=== PATIENT | female | born 1940 | race Caucasian/White ===

== ENCOUNTER 2017-01-21 05:36 | Inpatient (IN) ==
--- NOTE | 2017-01-21 05:56 | Emergency Department Note ---
Disposition Clinical Impression: Laceration Fall Qualifiers: Encounter type: initial encounter Qualified Code(s): W19.XXXA - Unspecified fall, initial encounter Syncope Qualifiers: Syncope type: unspecified Qualified Code(s): R55 - Syncope and collapse Disposition: Admitted As Inpatient Condition: Good General Adult HPI - General Chief complaint: ED Fall Stated complaint: fall Time Seen by Provider: 01/21/17 05:39 Source: patient, family, EMS Limitations: no limitations Nursing Notes Reviewed: Yes Vital Signs Reviewed: Yes - History of Present Illness HPI Narrative: 77-year-old female who all the remembers waking up on the bathroom floor. She does not know how she got to the bathroom but assumes that she was likely going to the restroom. She does not remember the event. She does remember that she could not get up and had to call a friend to help her. There is significant amount of blood in the bathroom. Unknown how long she had been in the bathroom. She is on dual antiplatelet therapy due to 2 drug-eluting stents that were placed proximally one year ago. She has a long-standing history of GI bleeds. She has had hospitalizations due to anemia from chronic GI please. She had a colonoscopy approximately one year ago which she reports was normal. She has had no change in her bowel movement since then but they are always dark. She denies having any complaints currently. Her friend in the room states that she has been complaining of fatigue over the last few days. She denies any chest pain or shortness of breath. She denies any significant pain in her head. Radiation: non-radiation Pain Severity: mild Pain Scale: 2 Consistency: constant Improves with: nothing Worsens with: nothing Associated symptoms: Reports: denies other symptoms Treatments Prior to Arrival: none - Related Data Home Medications Medication Instructions Recorded Confirmed Losartan [Cozaar] 25 mg PO DAILY 09/09/15 11/25/15 Acetaminophen [Tylenol] 500 mg PO Q6HR PRN 09/10/15 11/25/15 Calcium Carbonate [Calcium] 500 mg PO DAILY 09/10/15 11/25/15 Omeprazole [PriLOSEC] 20 mg PO DAILY 10/11/15 11/25/15 Albuterol Sulfate [Albuterol 2 puff IH Q4H PRN 11/25/15 11/25/15 Inhaler] Denosumab [Prolia (For Outpatient 60 mg SQ [id number] 11/25/15 11/25/15 Infusion)] Docusate [Colace] 100 mg PO BID PRN 11/25/15 11/25/15 Oxygen 2 - 3 l NS AD 11/25/15 11/25/15 amLODIPine [Norvasc] 5 mg PO DAILY 11/25/15 11/25/15 Previous Rx's Medication Instructions Recorded Aspirin 81 mg PO DAILY 30 Days tab.chew 09/15/15 Atorvastatin [Lipitor] 80 mg PO HS 30 Days tablet 09/15/15 Carvedilol [Coreg] 25 mg PO BID #60 tablet 09/15/15 Nitroglycerin [Nitrostat] 0.4 mg SL Q5-10MIN PRN #30 tab.subl 09/15/15 Ticagrelor [Brilinta] 90 mg PO BID tablet 09/15/15 Ipratropium/Albuterol Neb [Duoneb] 3 ml IH TID 30 Days inhsol 11/04/15 Benzonatate [Tessalon] 200 mg PO TID PRN #30 capsule 01/16/16 GuaiFENesin ER [Mucinex] 600 mg PO BID #20 tbbp.12hr 01/16/16 cephALEXin [Keflex] 500 mg PO QID #40 capsule 01/16/16 Allergies Allergy/AdvReac Type Severity Reaction Status Date / Time lorazepam [From Ativan] Allergy See Verified 11/25/15 16:41 Comments Benzodiazepines AdvReac Confusion Verified 11/02/15 10:34 haloperidol [From Haldol] AdvReac Agitated Verified 11/02/15 10:34 steroids AdvReac Agitated Uncoded 09/11/15 06:37 All systems ED: reviewed and negative except as stated. Constitutional: Denies: fever Cardiovascular: Denies: chest pain Respiratory: Denies: cough Gastrointestinal: Denies: abdominal pain Musculoskeletal: Denies: back pain Integumentary: Denies: rash Neurological: Denies: headache Past Medical History - Past Medical History Medical history: Reports: arthritis, cancer, coronary artery disease, GERD, hyperlipidemia, hypertension, malignancy, myocardial infarction, osteoporosis Surgical history: Reports: appendectomy, cholecystectomy, hysterectomy Psychiatric history: Reports: no psych history - Social History Smoking Status: Former smoker Smokeless Tobacco Status: No Alcohol use: Reports: none Drug use: Reports: none Physical Exam - General Limitations: no limitations General appearance: alert, in no apparent distress - Head Head exam: other (2 cm laceration to the posterior scalp. Bleeding is controlled) - Eye Eye exam: Present: normal appearance, PERRL, EOMI - ENT ENT exam: normal exam - Neck Neck exam: Present: normal inspection - Chest Chest inspection: Present: normal inspection - Respiratory Respiratory exam: Present: normal lung sounds bilaterally. Absent: respiratory distress - Cardiovascular Cardiovascular exam: Present: regular rate, normal rhythm, other (Systolic ejection murmur) - Abdominal Exam Abdominal exam: Present: soft, Non-Tender - Extremities Exam Extremities exam: Present: normal inspection - Back Exam Back exam: Present: normal inspection - Neurological Exam Neurological exam: Present: alert, oriented X3, CN II-XII intact. Absent: motor sensory deficit - Psychiatric Psychiatric exam: Present: normal affect, normal mood - Skin Skin exam: Present: warm, dry Course Course Narrative: hgb is normal. vitals are stable. ekg/troponin do not demonstrate acute disease. Will admit for syncope. She is currently asymptomatic. Vital Signs Temperature 97.5 F L 01/21/17 05:38 Pulse Rate 93 01/21/17 05:38 Respiratory Rate 18 01/21/17 05:38 Blood Pressure 132/77 01/21/17 05:38 O2 Sat by Pulse Oximetry 96 01/21/17 05:38 Temperature 97.5 F L 01/21/17 05:38 Pulse Rate 91 01/21/17 07:03 Respiratory Rate 18 01/21/17 07:03 Blood Pressure 105/59 01/21/17 07:03 O2 Sat by Pulse Oximetry 94 01/21/17 07:03 Oxygen Delivery Oxygen Delivery Room Air Procedures - Laceration Laceration 1 Site: scalp Side (If applicable): left Size (cm): 2 Description: linear Depth: simple, single layer Local Anesthetic: lidocaine 2%, with epi Pre-repair: wound explored, irrigated extensively, deep structures intact Skin layer closed with: other (chromic gut) Size: 4-0 Technique: running Medical Decision Making - Medical Records Medical records reviewed: Yes I reviewed the patient's medical records. - Lab Data Lab results reviewed: Yes I reviewed the patient's lab results. Result diagrams: 01/21/17 05:55 01/21/17 06:19 Lab Results 01/21/17 01/21/17 01/21/17 Range/Units 05:55 05:55 05:55 WBC 6.5 (4.3-11.1) K/mcL RBC 4.44 (3.82-4.97) M/mcL Hgb 13.8 (11.5-15.4) g/dL Hct 42.3 (35.3-44.9) % MCV 95.3 (83.0-100.0) fL MCH 31.1 (28.0-33.3) pg MCHC 32.6 (31.6-35.5) g/dL RDW 13.3 (11.5-14.5) % Plt Count 197 (140-400) K/mcL MPV 9.5 (9.4-12.4) fL Immature Gran % 0.5 (0-4) % Seg Neutrophils % 79.4 % Lymphocytes % 7.8 % Monocytes % 11.7 % Eosinophils % 0.3 % Basophils % 0.3 % Neutrophils # 5.2 (1.6-8.9) K/mcL Lymphocytes # 0.5 L (0.6-4.6) K/mcL Monocytes # 0.8 (0.0-1.3) K/mcL Eosinophils # 0.0 (0.0-0.6) K/mcL Basophils # 0.0 (0.0-0.2) K/mcL PT 12.8 H (9.4-12.1) Seconds INR 1.2 APTT 30.0 (26.0-36.0) Seconds Sodium (136-145) mEq/L Potassium (3.5-4.5) mEq/L Chloride (98-109) mEq/L Carbon Dioxide (19-29) mEq/L BUN (7-20) mg/dL Creatinine (0.57-1.11) mg/dL Est GFR ( Amer) (> 60) Est GFR (Non-Af Amer) (> 60) BUN/Creatinine Ratio (6-26) Glucose (70-99) mg/dL Calculated Osmolality (280-300) Calcium (8.6-10.8) mg/dL Creatine Kinase (29-168) Units/L Troponin I (0-0.03) ng/mL Specimen Rejected Blood Type B NEGATIVE Antibody Screen NEGATIVE 01/21/17 01/21/17 01/21/17 Range/Units 05:55 05:55 06:19 WBC (4.3-11.1) K/mcL RBC (3.82-4.97) M/mcL Hgb (11.5-15.4) g/dL Hct (35.3-44.9) % MCV (83.0-100.0) fL MCH (28.0-33.3) pg MCHC (31.6-35.5) g/dL RDW (11.5-14.5) % Plt Count (140-400) K/mcL MPV (9.4-12.4) fL Immature Gran % (0-4) % Seg Neutrophils % % Lymphocytes % % Monocytes % % Eosinophils % % Basophils % % Neutrophils # (1.6-8.9) K/mcL Lymphocytes # (0.6-4.6) K/mcL Monocytes # (0.0-1.3) K/mcL Eosinophils # (0.0-0.6) K/mcL Basophils # (0.0-0.2) K/mcL PT (9.4-12.1) Seconds INR APTT (26.0-36.0) Seconds Sodium 139 (136-145) mEq/L Potassium 4.0 (3.5-4.5) mEq/L Chloride 103 (98-109) mEq/L Carbon Dioxide 24 (19-29) mEq/L BUN 28 H (7-20) mg/dL Creatinine 1.09 (0.57-1.11) mg/dL Est GFR ( Amer) 59 L (> 60) Est GFR (Non-Af Amer) 48 L (> 60) BUN/Creatinine Ratio 26 (6-26) Glucose 123 H (70-99) mg/dL Calculated Osmolality 295 (280-300) Calcium 9.0 (8.6-10.8) mg/dL Creatine Kinase 113 (29-168) Units/L Troponin I 0.02 (0-0.03) ng/mL Specimen Rejected Hemolyzed Blood Type Antibody Screen - Radiology Data Radiology results reviewed: Yes I reviewed the patient's radiology results. - EKG Data EKG #1 EKG attestation: Yes I reviewed and interpreted this EKG. EKG shows normal: sinus rhythm Rate: normal Rhythm: NSR Boelus/QRS: normal ST segment depression in: v2, v3, v4, v5, v6 When compared to previous EKG there are: no significant changes Interpretation: no acute changes Attestation Statement - Attestation Attestation: I, Marc Bell, examined this patient and my medical decision-making was reviewed with the INTERFACE ENGINEER/PA/Advanced Practice Nurse/Resident Physician. I agree with the documented findings, disposition and treatment plan as described except to the extent set forth below. 77-year-old female presents to the emergency department after a syncopal episode. Patient is unable to give a history regarding the circumstances surrounding her fall to the ground. Patient first remembers being on the bathroom floor. She does not remember chest pain or shortness of breath or palpitations. Family member states the patient has had multiple falls over the past few weeks. No recent changes in medications. Patient had laceration to the left occiput which required repair by the resident. Patient has history of loss of balance over the past few weeks per family member. Patient had a echocardiogram performed by Dr. Dunne within the past few weeks which was apparently without abnormality per the patient. Patient agreed to admission to the hospital for further care and evaluation.
[2017-01-21 06:04] LABS: Basophils % 0.3 %; Eosinophils % 0.3 %; Hematocrit 42.3 % (35.3-44.9); Hemoglobin 13.8 g/dL (11.5-15.4); Immature Granulocytes % 0.5 % (0-4); Lymphocytes # 0.5 K/mcL (0.6-4.6); Lymphocytes % 7.8 %; Mean Corpuscular HGB Conc 32.6 g/dL (31.6-35.5); Mean Corpuscular Hemoglobin 31.1 pg (28.0-33.3); Mean Corpuscular Volume 95.3 fL (83.0-100.0); Mean Platelet Volume 9.5 fL (9.4-12.4); Monocytes # 0.8 K/mcL (0.0-1.3); Monocytes % 11.7 %; Neutrophils # 5.2 K/mcL (1.6-8.9); Platelet Count 197 K/mcL (140-400); Red Blood Count 4.44 M/mcL (3.82-4.97); Red Cell Distribution Width 13.3 % (11.5-14.5); Segmented Neutrophils % 79.4 %
[2017-01-21 06:09] LABS: INR 1.2; Prothrombin Time 12.8 Seconds (9.4-12.1)
[2017-01-21 07:09] LABS: Immature Platelets 4.1 % (1.1-6.1)
--- NOTE | 2017-01-21 08:07 | Internal Med History&Physical ---
Date of Encounter: 01/22/17 Time of Encounter: 08:05 Assessment and Plan (1) Syncope Current visit: Yes Status: Acute 77/female Multiple comorbid issues. Admitted with syncope/fall Unknown amount of time when she was unconscious. Lacerated wound on her left scalp. CT head: No acute intracranial abnormality. CT cervical spine: No fracture. Chest x-ray: No acute abnormality detected. Labs: Mild dehydration. Ultrasound carotid: 08/2015: Right proximal ICA and: 60-79%. Echocardiogram: 12/2016: Ejection fraction: 50-55%. No PFO detected. Plan: Admit is a patient: Need to 2 hourly neuro checks. Ultrasound carotid MRI brain UA: Ordered PT/OT evaluation resume home medication Of note: I examined this patient in the emergency room #2. Patient's niece was at bedside. Plan of care discussed with the patient/patient's family member. All questions answered. Qualifiers: Syncope type: unspecified Qualified Code(s): R55 - Syncope and collapse (2) Fall Current visit: Yes Status: Acute See above Qualifiers: Encounter type: initial encounter Qualified Code(s): W19.XXXA - Unspecified fall, initial encounter (3) CAD (coronary artery disease) Current visit: No Status: Chronic No chest pain. Resume home medication. Qualifiers: Coronary Disease-Associated Artery/Lesion type: [place] artery [place] vs. transplanted heart: [place] heart Associated angina: without angina Qualified Code(s): I25.10 - Atherosclerotic heart disease of [place] coronary artery without angina pectoris (4) HTN (hypertension) Current visit: Yes Status: Chronic Well controlled at this point. Resume home medication. Qualifiers: Hypertension type: essential hypertension Qualified Code(s): I10 - Essential (primary) hypertension (5) DVT prophylaxis Current visit: No Status: Acute SCD Rectal decision making: This patient has a moderate to severe risk of worsening is tired of being on appropriate medication related underlying comorbid conditions. Internal Medicine - H&P: HPI Chief complaint: syncope Admitted From: Emergency Dept Plans for Post Hospital Care: Home History of present illness: PCP: Dr Pérez Cardiology : Dr Dunne PMH:coronary artery disease, GERD, hyperlipidemia, hypertension, myocardial infarction, osteoporosis HPI: Patient had a syncopal episode this morning when she was in the bathroom. Patient does not know how long she was unconscious. She was calling for her significant other for help bruits 87-year-old man and he is deaf. Finally she managed to get her to the living room and that was the time her significant other noticed that patient has a pool of blood on her head.patient called her needs for further help. Patient's niece came and she called squad and patient came to this hospital for further evaluation. Patient does have abnormal gait/ unsteady gait for the past 2-3 days. Patient denies chest pain, shortness of breath, nausea, vomiting, abdominal pain, dizziness and diarrhea. Workup in the emergency room: Basic labs are drawn. X-ray chest unremarkable. CT head/CT cervical spine: No acute abnormality except left scalp laceration. Reason for admission: Syncope/TIA to rule out CVA. Family history: Noncontributory Past Med Surg Social Fam HX - Past Medical History Medical history: arthritis, cancer, coronary artery disease, GERD, hyperlipidemia, hypertension, malignancy, myocardial infarction, osteoporosis Psychiatric history: no psych history - Past Surgical History Surgical History: appendectomy, cholecystectomy, hysterectomy - Social History Smoking Status: Former smoker Smokeless Tobacco Status: No Alcohol use: none Drug use: none - Family History Mother Family Member Ethnicity: Non- Living Status: Hx Family Cardiac Disorders: Yes Hx Family Respiratory Disorders: No Hx Family Cancer: Yes Hx Family Endocrine Disorder: Yes Hx Family Neuromuscular Disorders: No Hx Family Neurologic Disorders: Yes Hx Family HEENT Disorders: No Hx Family Autoimmune Disorders: No Father Family Member Ethnicity: Non- Living Status: Hx Family Cardiac Disorders: Yes (brother,self) Hx Family Respiratory Disorders: Yes (self) Hx Family Cancer: Yes (self, brother) Hx Family GI Disorders: No Hx Family Endocrine Disorder: Yes (mother) Hx Family Neuromuscular Disorders: No Hx Family Neurologic Disorders: Yes (father ,mother) Hx Family HEENT Disorders: No Hx Family Autoimmune Disorders: No Sister Hx Family Cardiac Disorders: Yes (Coronary artery disease) Hx Family Cancer: Yes (Ureteral cancer) Internal Medicine - H&P: Meds Acetaminophen [Tylenol] 500 mg PO Q6HR PRN 09/10/15 [History] Calcium Carbonate [Calcium] 500 mg PO DAILY 09/10/15 [History] Aspirin 81 mg PO DAILY 30 Days tab.chew 09/15/15 [Rx] Atorvastatin [Lipitor] 80 mg PO HS 30 Days tablet 09/15/15 [Rx] Carvedilol [Coreg] 25 mg PO BID #60 tablet 09/15/15 [Rx] Nitroglycerin [Nitrostat] 0.4 mg SL Q5-10MIN PRN #30 tab.subl 09/15/15 [Rx] Omeprazole [PriLOSEC] 20 mg PO DAILY 10/11/15 [History] Albuterol Sulfate [Albuterol Inhaler] 2 puff IH Q4H PRN 11/25/15 [History] Denosumab [Prolia (For Outpatient Infusion)] 60 mg SQ [id number] 11/25/15 [History ] Docusate [Colace] 100 mg PO BID PRN 11/25/15 [History] Oxygen 2 - 3 l NS AD 11/25/15 [History] Losartan Potassium [Cozaar] 50 mg PO DAILY 01/21/17 [History] 3 Allergy/AdvReac Type Severity Reaction Status Date / Time Benzodiazepines AdvReac Confusion Verified 11/02/15 10:34 haloperidol [From Haldol] AdvReac Agitated Verified 11/02/15 10:34 lorazepam [From Ativan] AdvReac agitation Verified 01/21/17 07:15 steroids AdvReac Agitated Uncoded 09/11/15 06:37 All Systems PM: A 10-system review of systems was performed and is negative for pertinent findings except as documented above in the HPI. - Constitutional Constitutional: falls, lethargy, malaise, no chills, no fever(s), no night sweats - EENT Eyes: no change in vision, no discharge, no pain, no photophobia Ears: no ear discharge, no ear pain, no tinnitus Nose, mouth and throat: no dysphagia, no nasal discharge, no neck pain, no sore throat - Cardiovascular Cardiovascular ROS IM: no chest pain, no diaphoresis, no dyspnea, no lightheadedness, no palpitations, no syncope - Respiratory Respiratory: no cough, no dyspnea, no wheezing, no excessive phlegm production - Gastrointestinal Gastrointestinal: no abdominal pain, no diarrhea, no hematemesis, no hematochezia, no melena, no nausea, no vomiting - Genitourinary Genitourinary: no change in urinary stream, no dysuria, no flank pain, no hematuria - Musculoskeletal Musculoskeletal ROS IM: no numbness, no tingling - Integumentary Integumentary IM: no rash, no unusual bruising - Neurological Neurological ROS: abnormal gait, abnormal speech, confusion, no convulsions, no focal weakness, no numbness, no tingling, no tremor(s) - Hematologic/Lymphatic Hematologic/Lymphatic: no easy bruising - Constitutional Vitals: Temp Pulse Resp BP Pulse Ox 97.5 F L 91 18 105/59 94 01/21/17 05:38 01/21/17 07:03 01/21/17 07:03 01/21/17 07:03 01/21/17 07:03 General appearance: Present: A&O X 3, pleasant, no acute distress, answers questions appropriately - Head Head exam: Present: atraumatic, normocephalic - Eye Eye exam: Present: PERRL, conjuntiva pink, sclera anicteric Pupils: Present: PERRL - Neck Neck exam general surgery: Present: supple, trachea midline. Absent: lymphadenopathy - Respiratory Respiratory exam: Present: CTAB. Absent: accessory muscle use, rales, rhonchi, wheezes - Cardiovascular Cardiovascular exam: Present: RRR, +S1, +S2. Absent: diastolic murmur, gallop, rubs, systolic murmur - GI/Abdominal GI/Abdominal exam: Present: normal bowel sounds, soft, no peritoneal signs. Absent: distended, tenderness - Extremities Exam Extremities exam: Present: warm, radial pulses palpable and symmetrical. Absent : calf tenderness, cyanotic, pedal edema - Neurological Exam Neurological exam: Present: CN II-XII intact, oriented X3, no focal deficits. Absent: pronater drift, facial droop, speech deficit - Skin Skin exam: Present: dry, intact Internal Med - H&P Results - Labs CBC & Chem 7: 01/22/17 05:41 01/22/17 05:41 Labs: Discussed with the emergency room physician.
[2017-01-21] MEDS ORDERED: Naloxone 0.4 MG/ML INJ IVP PRN (08:09)
[2017-01-21] MEDS ORDERED: Nitroglycerin 0.4 MG TAB.SUBL SL PRN (08:11)
[2017-01-21] MEDS ORDERED: Denosumab 60 MG/ML SYRINGE SQ SCH (08:15)
[2017-01-21] MEDS ORDERED: NON-FORMULARY MEDICATION 1 EACH EACH (Oxygen [Oxygen] 0 L) NS SCH (08:15)
[2017-01-21] MEDS: Aspirin 81 MG TAB.CHEW PO SCH (11:22)
[2017-01-21 19:19] LABS: Bilirubin,Urine Small (Negative); Blood,Urine Moderate (Negative); Clarity,Urine Cloudy (Clear); Color,Urine Dark Yellow (Yellow); Glucose,Urine (UA) Normal (Normal); Ketones,Urine Trace mg/dL (Negative); Leukocyte Esterase,Urine Moderate (Negative); Nitrite,Urine Negative (Negative); Protein,Urine 30 mg/dL (Neg-Trace); Specific Gravity,Urine 1.028 (1.010-1.025); Urobilinogen,Urine Normal (Normal)
[2017-01-21 19:23] LABS: Hyaline Casts,Urine Moderate per lpf (None-Few); Squamous Epithelial Cell,Urine Moderate per lpf (None-Few); WBC,Urine 50-100 per hpf (0-3)
[2017-01-21 19:49] LABS: Bacteria,Urine Many per hpf (None-Few); RBC,Urine 0-3 per hpf (0-3)
[2017-01-22 06:59] LABS: INR 1.2; Prothrombin Time 12.5 Seconds (9.4-12.1)
[2017-01-22 07:02] LABS: Basophils % 0.4 %; Eosinophils # 0.2 K/mcL (0.0-0.6); Eosinophils % 3.2 %; Hematocrit 38.5 % (35.3-44.9); Hemoglobin 12.2 g/dL (11.5-15.4); Immature Granulocytes % 0.4 % (0-4); Lymphocytes % 18.6 %; Mean Corpuscular HGB Conc 31.7 g/dL (31.6-35.5); Mean Corpuscular Hemoglobin 30.6 pg (28.0-33.3); Mean Corpuscular Volume 96.5 fL (83.0-100.0); Mean Platelet Volume 9.8 fL (9.4-12.4); Monocytes # 0.9 K/mcL (0.0-1.3); Monocytes % 18.4 %; Platelet Count 207 K/mcL (140-400); Red Blood Count 3.99 M/mcL (3.82-4.97); Red Cell Distribution Width 13.6 % (11.5-14.5)
[2017-01-22 07:26] LABS: Alanine Aminotransferase 16 Units/L (0-55); Albumin 2.9 g/dL (3.5-5.0); Albumin/Globulin Ratio 0.7 (1.1-2.2); Alkaline Phosphatase 53 Units/L (38-126); Aspartate Amino Transferase 23 Units/L (5-34); BUN/Creatinine Ratio 30 (6-26); Bilirubin,Total 0.4 mg/dL (0.2-1.2); Blood Urea Nitrogen 32 mg/dL (7-20); Calcium 8.8 mg/dL (8.6-10.8); Carbon Dioxide 24 mEq/L (19-29); Chloride 107 mEq/L (98-109); Chol/HDL Ratio 4.4 (0-4.9); Cholesterol 135 mg/dL (< 200); Globulin 4.1 g/dL (2.4-3.5); Glucose 102 mg/dL (70-99); HDL Cholesterol 31 mg/dL (40-59); LDL Cholesterol,Calculated 79 mg/dL (0-99); Osmolality,Calculated 299 (280-300); Phosphorous 2.5 mg/dL (2.3-4.7); Potassium 3.7 mEq/L (3.5-4.5); Sodium 141 mEq/L (136-145); Triglycerides 126 mg/dL (< 150); eGFR For African Americans > 60 (> 60); eGFR For Non-African Americans 51 (> 60)
[2017-01-22 08:01] LABS: Platelet Estimate Normal (Normal)
[2017-01-22] MEDS: Aspirin 81 MG TAB.CHEW PO SCH (09:32)
[2017-01-22] MEDS: cefTRIAXone 1,000 MG in Water for inj. (sterile) 10 ML IVP SCH (11:03)
--- NOTE | 2017-01-22 19:11 | Internal Med Progress Note ---
Date of Encounter: 01/22/17 Time of Encounter: 11:00 - Assessment and plan (1) Syncope Current Visit: Yes Status: Acute Assessment and plan: Patient reports syncopal episode in the bathroom on the morning of admission. She states she is not even remember how she got to the bathroom, she just awakened in the floor. She does not know how long her loss of consciousness was. She states that she was calling for her , but he is 87 years old and is very hard of hearing did not hear her. She finally managed to get herself to the living room, at that time realized that she was bleeding from her head and called the squad. She had laceration that was sutured in the emergency department. Per admission note, patient did have unsteady gait for the past to 3 days prior to arrival. She denied any chest pain, shortness of breath, nausea, vomiting, abdominal pain, dizziness, headache, or vision changes. She denies fever or chills. Patient had syncopal episode of unknown etiology. All imaging has been negative to this point. 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 Recommend cardiology consult for the morning, possible Holter monitor after discharge. Cervical Spine CT 01/21/17 05:47 IMPRESSION: No acute abnormality of the cervical spine. D/ / Berhane Roca MD / Berhane Roca MD Interpreting Provider: Berhane Roca MD Head CT 01/21/17 05:47 IMPRESSION: No acute intracranial abnormality. Left parietal scalp laceration. D/ / Berhane Roca MD / Berhane oRca MD Interpreting Provider: Berhane Roca MD Brain MRI 01/21/17 08:15 IMPRESSION: 1. No acute abnormality. Specifically, no acute infarction. 2. Diffuse parenchymal volume loss and sequela of moderate chronic microvascular ischemic changes. D/ / Janes Pitts MD / Janes Pitts MD Interpreting Provider: Janes Ptits MD Qualifiers: Syncope type: unspecified Qualified Code(s): R55 - Syncope and collapse (2) Fall Current Visit: Yes Status: Acute Assessment and plan: Patient status post fall at home. Laceration to left parietal area. Patient reports loss of consciousness for unknown amount of time. Physical therapy and occupational therapy have evaluated the patient recommend outpatient therapy. Continue fall precautions and bed alarm. Up with assist only. Qualifiers: Encounter type: initial encounter Qualified Code(s): W19.XXXA - Unspecified fall, initial encounter (3) HTN (hypertension) Current Visit: Yes Status: Chronic Assessment and plan: Well controlled. Continue home medications. Continue to monitor vital signs per admission orders. Qualifiers: Hypertension type: essential hypertension Qualified Code(s): I10 - Essential (primary) hypertension (4) COPD (chronic obstructive pulmonary disease) Current Visit: Yes Status: Chronic Assessment and plan: No acute exacerbation at this time. Lungs are clear diminished throughout. She denies cough. She is not requiring supplemental oxygen above her baseline. Chest x-ray is negative. She has no leukocytosis, fever, tachycardia. She is not febrile. Continue home medications. Continue duo nebs. Titrate O2 as needed to maintain sats greater than 92%. Chest X-Ray 01/21/17 05:47 IMPRESSION: Stable chest. No acute disease. D/ / Berhane Roca MD / Berhane Roca MD Interpreting Provider: Berhane Roca MD Qualifiers: COPD type: unspecified COPD Qualified Code(s): J44.9 - Chronic obstructive pulmonary disease, unspecified (5) Laceration Current Visit: Yes Status: Acute Assessment and plan: Plan as above. Watch for signs of infection and bleeding. Watch for discharge. Sutures out in 7-10 days. (6) DVT prophylaxis Current Visit: No Status: Acute Assessment and plan: ROBIN hose ordered. (7) UTI (urinary tract infection) Current Visit: Yes Status: Acute Assessment and plan: Patient denies urinary symptoms. This is an incidental finding on routine labs in the emergency department. Urine was cloudy, acidic gravity 1.028, trace of proteins, moderate amount of blood, moderate leukocyte esterase with 50-100 microscopic white cells. Urine showed many bacteria, moderate casts. Culture is indicated and pending. She is being treated with Rocephin 1 g IV daily. Watch for culture and adjust antibiotics as necessary. Qualifiers: Urinary tract infection type: acute cystitis Hematuria presence: without hematuria Qualified Code(s): N30.00 - Acute cystitis without hematuria - Time Spent With Patient less than 15 minutes - Subjective Interval history: Patient was seen and assessed at 11 AM. She is alert, awake, oriented, pleasant. She denies chest pain. She denies fever or chills. She denies any urinary symptoms. She is not aware that she had a urinary tract infection. He denies abdominal pain or back pain, no nausea, vomiting, diaphoresis or diarrhea. She states that she wants to go home. 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 All testing has been negative, she is aware. - Constitutional Vitals: Temp Pulse Resp BP Pulse Ox 97.5 F L 94 17 111/66 93 01/22/17 18:59 01/22/17 18:59 01/22/17 18:59 01/22/17 18:59 01/22/17 18:59 General appearance: Present: cooperative, A&O X 3, pleasant, no acute distress, answers questions appropriately - Head Head exam: Present: atraumatic, normal inspection, normocephalic - Eye Eye exam: Present: normal appearance, PERRL, conjuntiva pink, sclera anicteric Pupils: Present: PERRL - Neck Neck exam general surgery: Present: supple, trachea midline. Absent: lymphadenopathy - Respiratory Respiratory exam: Present: CTAB. Absent: accessory muscle use, chest wall tenderness, rales, respiratory distress, rhonchi, wheezes - Cardiovascular Cardiovascular exam: Present: RRR, +S1, +S2. Absent: bradycardia, diastolic murmur, gallop, rubs, systolic murmur, tachycardia - GI/Abdominal GI/Abdominal exam: Present: normal bowel sounds, soft. Absent: distended, hepatomegaly, tenderness - Extremities Exam Extremities exam: Present: normal capillary refill, normal inspection, warm, radial pulses palpable and symmetrical. Absent: calf tenderness, cyanotic, pedal edema, tenderness - Neurological Exam Neurological exam: Present: alert, oriented X3, no focal deficits. Absent: facial droop, speech deficit - Skin Skin exam: Present: dry, intact, normal color, warm. Absent: rash Internal Medicine: Result - Labs CBC & Chem 7: 01/22/17 05:41 01/22/17 05:41 Labs: Short CBC 01/22/17 Range/Units 05:41 WBC 5.1 (4.3-11.1) K/mcL Hgb 12.2 D (11.5-15.4) g/dL Hct 38.5 (35.3-44.9) % Plt Count 207 (140-400) K/mcL Neutrophils # 3.0 (1.6-8.9) K/mcL BMP 01/22/17 05:41 Sodium 141 Potassium 3.7 Chloride 107 Carbon Dioxide 24 BUN 32 H Creatinine 1.05 Glucose 102 H Calcium 8.8 Cardiac Enzymes 01/21/17 Range/Units 20:00 Troponin I 0.01 (0-0.03) ng/mL Liver Function 01/22/17 Range/Units 05:41 Total Bilirubin 0.4 (0.2-1.2) mg/dL AST 23 (5-34) Units/L ALT 16 (0-55) Units/L Alkaline Phosphatase 53 (38-126) Units/L Albumin 2.9 L (3.5-5.0) g/dL Urine 01/21/17 Range/Units 10:57 Urine Color Dark Yellow (Yellow) Urine Clarity Cloudy A (Clear) Urine pH 6.0 (5.0-8.0) pH Units Ur Specific [place] 1.028 H (1.010-1.025) Urine Protein 30 H (Neg-Trace) mg/dL Urine Glucose (UA) Normal (Normal) mg/dL - ABG Interpretation ABG results: PT/INR, D-dimer PT 12.5 Seconds (9.4-12.1) H 01/22/17 05:41 Consult Discharge Plan - Plan Referrals: Marc Pérez MD [Primary Care Provider] - 01/25/17 10:00 am
[2017-01-23 07:20] VITALS: BP 124/79
[2017-01-23] MEDS: cefTRIAXone 1,000 MG in Water for inj. (sterile) 10 ML IVP SCH (08:54)
[2017-01-23] MEDS: Aspirin 81 MG TAB.CHEW PO SCH (08:55)
[2017-01-23 09:43] LABS: Bilirubin,Urine Negative (Negative); Blood,Urine Small (Negative); Clarity,Urine Cloudy (Clear); Color,Urine Yellow (Yellow); Glucose,Urine (UA) Normal (Normal); Ketones,Urine Negative (Negative); Leukocyte Esterase,Urine Moderate (Negative); Nitrite,Urine Negative (Negative); Protein,Urine Trace mg/dL (Neg-Trace); Specific Gravity,Urine 1.029 (1.010-1.025); Urobilinogen,Urine Normal (Normal)
[2017-01-23 09:44] LABS: Bacteria,Urine None Seen per hpf (None-Few); Hyaline Casts,Urine None Seen per lpf (None-Few); Squamous Epithelial Cell,Urine Many per lpf (None-Few); WBC,Urine 50-100 per hpf (0-3)
--- NOTE | 2017-01-23 10:39 | Discharge Summary ---
Date of Encounter: 01/23/17 Time of Encounter: 08:40 - Discharge Diagnosis (1) Syncope Priority: Primary Status: Acute Comments: Patient reports syncopal episode in the bathroom on the morning of admission. She states she is not even remember how she got to the bathroom, she just awakened in the floor. She does not know how long her loss of consciousness was. She states that she was calling for her , but he is 87 years old and is very hard of hearing did not hear her. She finally managed to get herself to the living room, at that time realized that she was bleeding from her head and called the squad. She had laceration that was sutured in the emergency department. Per admission note, patient did have unsteady gait for the past to 3 days prior to arrival. She denied any chest pain, shortness of breath, nausea, vomiting, abdominal pain, dizziness, headache, or vision changes. She denies fever or chills. Patient had syncopal episode of unknown etiology. All imaging has been negative to this point. 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 Pt has had tele monitoring for the duration of her visit and was without events , will order Holter for discharge. Cervical Spine CT 01/21/17 05:47 IMPRESSION: No acute abnormality of the cervical spine. D/ / Berhane Roca MD / Berhane Roca MD Interpreting Provider: Berhane Roca MD Head CT 01/21/17 05:47 IMPRESSION: No acute intracranial abnormality. Left parietal scalp laceration. D/ / Berhane Roca MD / Berhane Roca MD Interpreting Provider: Berhane Roca MD Brain MRI 01/21/17 08:15 IMPRESSION: 1. No acute abnormality. Specifically, no acute infarction. 2. Diffuse parenchymal volume loss and sequela of moderate chronic microvascular ischemic changes. D/ / Janes Pitts MD / Janes Pitts MD Interpreting Provider: Janes Pitts MD Qualifiers: Syncope type: unspecified Qualified Code(s): R55 - Syncope and collapse (2) Fall Priority: Secondary Status: Acute Comments: Patient status post fall at home. Laceration to left parietal area. Patient reports loss of consciousness for unknown amount of time. Physical therapy and occupational therapy have evaluated the patient recommend outpatient therapy. PT recommends outpatient PT, pt will follow up with PCP on 01/25 at 10:00. Can be ordered at that time. Cervical Spine CT 01/21/17 05:47 IMPRESSION: No acute abnormality of the cervical spine. D/ / Berhane Roca MD / Berhane Roca MD Interpreting Provider: Berhane Roca MD Head CT 01/21/17 05:47 IMPRESSION: No acute intracranial abnormality. Left parietal scalp laceration. D/ / Berhane Roca MD / Berhane Roca MD Interpreting Provider: Berhane Roca MD Brain MRI 01/21/17 08:15 IMPRESSION: 1. No acute abnormality. Specifically, no acute infarction. 2. Diffuse parenchymal volume loss and sequela of moderate chronic microvascular ischemic changes. D/ / Janes Pitts MD / Janes Pitts MD Interpreting Provider: Janes Pitts MD Qualifiers: Encounter type: initial encounter Qualified Code(s): W19.XXXA - Unspecified fall, initial encounter (3) HTN (hypertension) Priority: Secondary Status: Chronic Comments: Well controlled. Continue medications. Qualifiers: Hypertension type: essential hypertension Qualified Code(s): I10 - Essential (primary) hypertension (4) COPD (chronic obstructive pulmonary disease) Priority: Secondary Status: Chronic Comments: No acute exacerbation at this time. Lungs are clear diminished throughout. She denies cough. She is not requiring supplemental oxygen above her baseline. Chest x-ray is negative. She has no leukocytosis, fever, tachycardia. She is not febrile. Continue home medications after discharge. Chest X-Ray 01/21/17 05:47 IMPRESSION: Stable chest. No acute disease. D/ / Berhane Roca MD / Berhane Roca MD Interpreting Provider: Berhane Roca MD Qualifiers: COPD type: unspecified COPD Qualified Code(s): J44.9 - Chronic obstructive pulmonary disease, unspecified (5) Laceration Priority: Secondary Status: Acute Comments: Sutures out in 7-10 days. There is no bleeding or drainage from wound. (6) DVT prophylaxis Priority: Secondary Status: Acute Comments: ROBIN hose ordered. (7) UTI (urinary tract infection) Priority: Secondary Status: Acute Comments: Patient denies urinary symptoms. This is an incidental finding on routine labs in the emergency department. Urine was cloudy, acidic gravity 1.028, trace of proteins, moderate amount of blood, moderate leukocyte esterase with 50-100 microscopic white cells. Urine showed many bacteria, moderate casts. Culture grossly Unable to be interpreted. Urine has been recollected, will notify patient if change in antibiotics as needed. She is being treated with Rocephin 1 g IV daily, patient will be sent home with Bactrim DS. Watch for culture and adjust antibiotics as necessary. Qualifiers: Urinary tract infection type: acute cystitis Hematuria presence: without hematuria Qualified Code(s): N30.00 - Acute cystitis without hematuria - Discharge Medications Prescriptions: Sulfamethoxazole/Trimeth DS [Bactrim DS] 1 each PO BID #14 tablet Home Medications: Acetaminophen [Tylenol] 500 mg PO Q6HR PRN 09/10/15 [History] Calcium Carbonate [Calcium] 500 mg PO DAILY 09/10/15 [History] Aspirin 81 mg PO DAILY 30 Days tab.chew 09/15/15 [Rx] Atorvastatin [Lipitor] 80 mg PO HS 30 Days tablet 09/15/15 [Rx] Carvedilol [Coreg] 25 mg PO BID #60 tablet 09/15/15 [Rx] Nitroglycerin [Nitrostat] 0.4 mg SL Q5-10MIN PRN #30 tab.subl 09/15/15 [Rx] Omeprazole [PriLOSEC] 20 mg PO DAILY 10/11/15 [History] Albuterol Sulfate [Albuterol Inhaler] 2 puff IH Q4H PRN 11/25/15 [History] Denosumab [Prolia (For Outpatient Infusion)] 60 mg SQ [id number] 11/25/15 [History ] Docusate [Colace] 100 mg PO BID PRN 11/25/15 [History] Oxygen 2 - 3 l NS AD 11/25/15 [History] Losartan Potassium [Cozaar] 50 mg PO DAILY 01/21/17 [History] Sulfamethoxazole/Trimeth DS [Bactrim DS] 1 each PO BID #14 tablet 01/23/17 [Rx] Allergies/Adverse Reactions: 3 Allergy/AdvReac Type Severity Reaction Status Date / Time Benzodiazepines AdvReac Confusion Verified 11/02/15 10:34 haloperidol [From Haldol] AdvReac Agitated Verified 11/02/15 10:34 lorazepam [From Ativan] AdvReac agitation Verified 01/21/17 07:15 steroids AdvReac Agitated Uncoded 09/11/15 06:37 Procedures/tests Complete & Pending: Procedures Performed prior 72 hours Category Date Time Status MR head/brain wo con [MR] Routine MRI 01/21/17 08:15 Completed EV carotid duplex imaging BI Routine Y 01/21/17 08:14 Completed Date of admission: 01/21/17 08:09 Primary care physician: Marc Pérez MD Consults: 01/21/17 08:14 Consult to Occupational Therapy [CONS] Routine Comment: Evaluate, develop and implement POC Reason for Consult: TIA/CVA Consult to Physical Therapy [CONS] Routine Comment: Evaluate, develop and implement POC Reason for Consult: TIA/CVA 01/22/17 19:21 Consult to Cardiology [CONS] Routine Comment: Consulting Provider: [facility] [place] Reason for Consult: Syncopal episode, all routine testing and imaging negative. Pt denies chest pain at time of episode. Recommendations, please, for any other testing, Holter, etc? Call Completed: No Discharging clinician: Trixie Sullivan Anticipated date of discharge: 01/23/17 - Patient Status Disposition: Home, Self-Care Condition: Good Functional capacity at discharge: independent ambulation Overall status at discharge: patient is back to baseline - Discharge Instructions Follow Up With: Marc Pérez MD [Primary Care Provider] - 01/25/17 10:00 am Additional Instructions: Please follow-up with Dr. Jane on 01/28/2017 at 11 AM. Has been recommended that you have outpatient physical therapy for strengthening. Please discuss this with Dr. Pérez at your visit. His follow-up with cardiology as scheduled. Your Holter monitor has been ordered, results will go to cardiology. Please take your antibiotics as written, we will call you if there needs to be a change in her antibiotic. Increase your fluid intake daily. Resume your other normal medications. Return to your normal activities as tolerated. Return to the emergency department as needed for any other parts or concerns, or if your symptoms return or worsen. - Diet and Activity Activity: increase activity as tolerated Diet: advance to your usual diet Interval History: Please see assessment and plan per hospital course. Hospital course: Ms. Thakkar is a 77 year old female - Time Spent with Patient Total time spent providing and/or coordinating discharge services: Less than 30 minutes - Constitutional Vitals: Temp Pulse Resp BP Pulse Ox 97.9 F 84 18 124/79 94 01/23/17 07:18 01/23/17 07:18 01/23/17 07:18 01/23/17 07:18 01/23/17 07:18 General appearance: Present: A&O X 3, pleasant, no acute distress, answers questions appropriately - Head Head exam: Present: atraumatic, normal inspection, normocephalic - Eye Eye exam: Present: normal appearance, conjuntiva pink, sclera anicteric - Neck Neck exam general surgery: Present: supple, trachea midline. Absent: lymphadenopathy, tenderness - Respiratory Respiratory exam: Present: CTAB. Absent: accessory muscle use, rales, rhonchi, wheezes - Cardiovascular Cardiovascular exam: Present: RRR, +S1, +S2. Absent: diastolic murmur, gallop, rubs, systolic murmur - GI/Abdominal GI/Abdominal exam: Present: normal bowel sounds, soft. Absent: distended, hepatomegaly, tenderness - Extremities Exam Extremities exam: Present: normal capillary refill, warm, radial pulses palpable and symmetrical. Absent: calf tenderness, cyanotic, pedal edema, tenderness - Neurological Exam Neurological exam: Present: alert, oriented X3, no focal deficits, strengths equal and symetr throughout. Absent: altered, facial droop, speech deficit - Skin Skin exam: Present: dry, intact, normal color, warm. Absent: rash
--- NOTE | 2017-01-23 12:04 | Cardiology Consult Note ---
Date of Encounter: 01/23/17 Time of Encounter: 12:00 Assessment and Plan (1) Syncope Current Visit: Yes Status: Acute Possibly syncope as a result of UTI, however with h/o CAD and no chest pain prior to previous stents consider OP stress test and event monitor. patient will follow with Dr. Dunne in 2-4 weeks Qualifiers: Syncope type: unspecified Qualified Code(s): R55 - Syncope and collapse Discussion w patient/family: The assessment and plan as outlined above was discussed with the patient and/or family members who expressed understanding and agreement. All questions were answered. Thank you for involving us in the care of your patient. Please call with any questions. History of Present Illness Consult date: 01/23/17 Consult reason: fall Chief complaint: i fell and dont remember how History of present illness: Ms. Thakkar is a 77 year old female with h/o CAD s/p PCI a year ago to the RCA and LAD with a recent ECHO found to have a preserved EF at 60% and no major valvular abnormalities. She does not remember how or events related to her fall. she remembers going to the bathroom and waking up on the floor with a scalp wound bleeding. Denes any chest pain, worsening SOB or palpitations recently. 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 An OP stress test is reasonable since she did not have chest pain prior to her previous stents. Past Med Surg Social Fam HX - Past Medical History Medical history: arthritis, cancer, coronary artery disease, GERD, hyperlipidemia, hypertension, malignancy, myocardial infarction, osteoporosis Psychiatric history: no psych history - Past Surgical History Surgical History: appendectomy, cholecystectomy, hysterectomy - Social History Smoking Status: Former smoker Smokeless Tobacco Status: No Alcohol use: none Drug use: none - Family History Mother Family Member Ethnicity: Non- Living Status: Hx Family Cardiac Disorders: Yes Hx Family Respiratory Disorders: No Hx Family Cancer: Yes Hx Family Endocrine Disorder: Yes Hx Family Neuromuscular Disorders: No Hx Family Neurologic Disorders: Yes Hx Family HEENT Disorders: No Hx Family Autoimmune Disorders: No Father Family Member Ethnicity: Non- Living Status: Hx Family Cardiac Disorders: Yes (brother,self) Hx Family Respiratory Disorders: Yes (self) Hx Family Cancer: Yes (self, brother) Hx Family GI Disorders: No Hx Family Endocrine Disorder: Yes (mother) Hx Family Neuromuscular Disorders: No Hx Family Neurologic Disorders: Yes (father ,mother) Hx Family HEENT Disorders: No Hx Family Autoimmune Disorders: No Sister Hx Family Cardiac Disorders: Yes (Coronary artery disease) Hx Family Cancer: Yes (Ureteral cancer) Medications and Allergies Acetaminophen [Tylenol] 500 mg PO Q6HR PRN 09/10/15 [History] Calcium Carbonate [Calcium] 500 mg PO DAILY 09/10/15 [History] Aspirin 81 mg PO DAILY 30 Days tab.chew 09/15/15 [Rx] Atorvastatin [Lipitor] 80 mg PO HS 30 Days tablet 09/15/15 [Rx] Carvedilol [Coreg] 25 mg PO BID #60 tablet 09/15/15 [Rx] Nitroglycerin [Nitrostat] 0.4 mg SL Q5-10MIN PRN #30 tab.subl 09/15/15 [Rx] Omeprazole [PriLOSEC] 20 mg PO DAILY 10/11/15 [History] Albuterol Sulfate [Albuterol Inhaler] 2 puff IH Q4H PRN 11/25/15 [History] Denosumab [Prolia (For Outpatient Infusion)] 60 mg SQ [id number] 11/25/15 [History ] Docusate [Colace] 100 mg PO BID PRN 11/25/15 [History] Oxygen 2 - 3 l NS AD 11/25/15 [History] Losartan Potassium [Cozaar] 50 mg PO DAILY 01/21/17 [History] Sulfamethoxazole/Trimeth DS [Bactrim DS] 1 each PO BID #14 tablet 01/23/17 [Rx] 3 Allergy/AdvReac Type Severity Reaction Status Date / Time Benzodiazepines AdvReac Confusion Verified 11/02/15 10:34 haloperidol [From Haldol] AdvReac Agitated Verified 11/02/15 10:34 lorazepam [From Ativan] AdvReac agitation Verified 01/21/17 07:15 steroids AdvReac Agitated Uncoded 09/11/15 06:37 All Systems Review: A 10-system review of systems was performed and is negative for pertinent findings except as documented above in the HPI. Physical Examination General: Conversant, No Apparent Distress HEENT: Atraumatic, Normocephaly, Mucus Membranes Moist Neck: No JVD, Normal carotid pulses Cardiac: Reg Rate and Rhythm, Normal S1 and S2, No Murmur Lungs: Normal Breath Sounds (severe dimished air entry over the right lung), No Wheeze, Rales, Rhonchi Neuro: Alert and responsive, No focal deficits noted Abdomen: Soft, Non-Tender Skin: No rashes noted on visualized skin Musculoskeletal: No Chest Wall Tenderness Extremities: No Clubbing, No Cyanosis, No Edema, Normal Pulses Results 01/22/17 05:41 01/22/17 05:41 Consult Discharge Plan - Plan Instructions: Urinary Tract Infection in Women (DC), Syncope (DC), Fall Prevention (DC) Additional Instructions: Please follow-up with Dr. Jane on 01/28/2017 at 11 AM. Has been recommended that you have outpatient physical therapy for strengthening. Please discuss this with Dr. Pérez at your visit. His follow-up with cardiology as scheduled. Your Holter monitor has been ordered, results will go to cardiology. Please take your antibiotics as written, we will call you if there needs to be a change in her antibiotic. Increase your fluid intake daily. Resume your other normal medications. Return to your normal activities as tolerated. Return to the emergency department as needed for any other parts or concerns, or if your symptoms return or worsen. Follow-up appointments: If there is not an appointment listed below, please call your physician and schedule a follow-up appointment. If you have congestive heart failure and your symptoms return, make an appointment with your physician. Medication List: Carry an up to date list of medications you are taking at all time. We have given you an updated medication list including any new medications that you have been prescribed. Please provide that list to your primary provider Symptoms: If your condition changes or you experience any of the following symptoms, notify your physician immediately: Unusual or worsening pain, fever, persistent nausea and vomiting, bleeding, increase in swelling (especially in your legs), sudden weight gain, extreme dizziness, chest pain, increased drainage or redness from a wound or incision. Go to the emergency department if you experience a problem with breathing. Weights: If you have a history of swelling or shortness of breath, weigh yourself daily and notify your physician if you have a weight gain of two or more pounds in one day or 5 or more pounds in a week. If you experience any of the warning signs for stroke: Sudden numbness or weakness of the face, arm or leg; especially on one side of the body, sudden confusion, trouble speaking or understanding, sudden trouble seeing in one or both eyes, sudden trouble walking, dizziness, loss of balance or coordination, sudden sever headache with no cause; Call 911 or go to the emergency room. Stroke is a medical emergency. Some risk factors for stroke: Age, cigarette smoking, diabetes, excessive alcohol consumption, family history , high blood pressure, overweight, physical inactivity, prior stroke, heart attack, diagnosis of carotid artery stenosis or other artery disease. If you smoke, STOP: Smoking or tobacco use significantly increases your risk of heart and lung disease. Your chance of disease greatly increases if you continue to smoke. For more information, call the [place] tobacco quit line for smoking cessation 2-NOW ( ) Referrals: Marc Pérez MD [Primary Care Provider] - 01/25/17 10:00 am Prescriptions: Sulfamethoxazole/Trimeth DS [Bactrim DS] 1 each PO BID #14 tablet
--- NOTE | 2017-01-23 18:17 | Electrocardiograph Report ---
[place] [id number] Test Date: 2017-01-21 Pat Name: Leeanne Thakkar Department: 104 Room: 3B54 Gender: F Process Lead: MACKENZIE : 1940 Requested By: Myles Ward Order Number: [id number] Reading MD: Joni Angulo DO Measurements Intervals [place] Rate: 92 P: 14 GA: 116 QRS: 12 QRSD: 85 T: 163 QT: 369 QTc: 418 Interpretive Statements Sinus rhythm Left ventricular hypertrophy with ST-T changes Electronically Signed On 01-23-2017 18:16:31 EST by Joni Angulo DO
== END 2017-01-23 12:26 | disposition home or self-care (01) | DRG 690 ==
LOC: 3BNU 05:36 → EMEROO 05:36 → 3BNU 08:07
PROVIDERS: ADMIT Internal Medicine; ATTEND Registered Nurse

== ENCOUNTER 2019-09-21 05:01 | Inpatient (IN) ==
[2019-09-21] MEDS ORDERED: Azithromycin 500 MG in 0.9 % Sodium Chloride 250 ML IVPB ONE (06:14)
[2019-09-21] MEDS ORDERED: cefTRIAXone 1,000 MG in Water for inj. (sterile) 10 ML IVP ONE (06:14)
[2019-09-21 07:13] LABS: Basophils % 0.2 %; Eosinophils % 0.2 %; Hematocrit 30.3 % (35.3-44.9); Hemoglobin 9.3 g/dL (11.5-15.4); Immature Granulocytes % 0.5 % (0-4); Lymphocytes # 0.3 K/mcL (0.6-4.6); Lymphocytes % 4.6 %; Mean Corpuscular HGB Conc 30.7 g/dL (31.6-35.5); Mean Corpuscular Hemoglobin 31.7 pg (28.0-33.3); Mean Corpuscular Volume 103.4 fL (83.0-100.0); Mean Platelet Volume 9.2 fL (9.4-12.4); Monocytes # 0.5 K/mcL (0.0-1.3); Monocytes % 8.5 %; Neutrophils # 5.3 K/mcL (1.6-8.9); Platelet Count 153 K/mcL (140-400); Red Blood Count 2.93 M/mcL (3.82-4.97); Red Cell Distribution Width 13.3 % (11.5-14.5); White Blood Count 6.1 K/mcL (4.3-11.1)
[2019-09-21 07:17] LABS: INR 1.2; Prothrombin Time 13.5 Seconds (9.4-12.1)
[2019-09-21 07:20] LABS: Activated Partial Thrombo Time 36.4 Seconds (26.0-36.0)
[2019-09-21 07:28] LABS: Adenovirus Not Detected (Not Detect); Coronavirus 229E Not Detected (Not Detect); Coronavirus HKU1 Not Detected (Not Detect); Coronavirus NL63 Not Detected (Not Detect); Coronavirus OC43 Not Detected (Not Detect)
[2019-09-21 07:30] LABS: Bordetella Pertussis Not Detected (Not Detect); Chlamydophila pneumoniae Not Detected (Not Detect); Human Metapneumovirus Not Detected (Not Detect); Human Rhinovirus/Enterovirus Not Detected (Not Detect); Influenza A Subtype 2009 H1 Not Detected (Not Detect); Influenza B Not Detected (Not Detect); Mycoplasma pneumoniae Not Detected (Not Detect); Parainfluenza Virus 1 Not Detected (Not Detect); Parainfluenza Virus 2 Not Detected (Not Detect); Parainfluenza Virus 3 Not Detected (Not Detect); Parainfluenza Virus 4 Not Detected (Not Detect); Respiratory Syncytial Virus Not Detected (Not Detect)
[2019-09-21 07:31] LABS: Alanine Aminotransferase 22 Units/L (7-52); Albumin 3.5 g/dL (3.5-5.7); Albumin/Globulin Ratio 0.9 (1.1-2.2); Alkaline Phosphatase 68 Units/L (34-104); Aspartate Amino Transferase 31 Units/L (13-39); BUN/Creatinine Ratio 29 (6-26); Bilirubin,Total 0.4 mg/dL (0.3-1.0); Blood Urea Nitrogen 24 mg/dL (8-23); Calcium 9.4 mg/dL (8.6-10.3); Carbon Dioxide 32 mEq/L (23-29); Chloride 104 mEq/L (98-107); Globulin 3.9 g/dL (2.4-3.5); Glucose 95 mg/dL (70-105); Osmolality,Calculated 298 (280-300); Sodium 142 mEq/L (136-145); Total Protein 7.4 g/dL (6.4-8.9); eGFR For African Americans > 60 (> 60); eGFR For Non-African Americans > 60 (> 60)
[2019-09-21] MEDS ORDERED: Ipratropium/Albuterol Neb 3 ML IH PRN (09:14)
[2019-09-21] MEDS ORDERED: Naloxone 0.4 MG/ML INJ IVP PRN (09:16)
[2019-09-21] MEDS ORDERED: Ondansetron ODT 4 MG TAB.RAPDIS SL PRN (09:16)
[2019-09-21] MEDS ORDERED: Isovue-370 500 ML BOTTLE IVP ONE (09:18)
[2019-09-21] MEDS ORDERED: Furosemide 40 MG/4 ML VIAL IVP ONE (09:37)
[2019-09-21] MEDS ORDERED: Perflutren Lipid Microsphere 1.3 ML in 0.9 % Sodium Chloride 8.7 ML IVP PRN (09:38)
[2019-09-21] MEDS: Dexamethasone 4 MG/ML VIAL IVP SCH (10:46)
[2019-09-21 12:44] LABS: ABG Base Excess 9 mEq/L (-2 to 3); ABG HCO3 33 mEq/L (21-27); ABG Oxygen Saturation 87 % (95-98); ABG PCO2 39 mmHg (35-45); ABG PH 7.53 pH Units (7.32-7.45); ABG PO2 47 mmHg (85-104); ABG TCO2 34 mEq/L (20-26)
[2019-09-21] MEDS: *HR* Heparin 5,000 UNIT/ML VIAL SQ SCH ×2 (15:38→20:53)
[2019-09-21] MEDS: carvediloL 25 MG TABLET PO SCH (16:42)
[2019-09-21] MEDS: Mirtazapine 15 MG TABLET PO SCH (20:52)
[2019-09-22] MEDS: *HR* Heparin 5,000 UNIT/ML VIAL SQ SCH ×3 (04:47→22:28)
[2019-09-22] MEDS: cefTRIAXone 1,000 MG in Water for inj. (sterile) 10 ML IVP SCH (08:26)
[2019-09-22] MEDS: Aspirin 81 MG TAB.CHEW PO SCH (08:27)
[2019-09-22] MEDS: Dexamethasone 4 MG/ML VIAL IVP SCH (08:27)
[2019-09-22] MEDS: carvediloL 25 MG TABLET PO SCH ×2 (08:28→16:00)
[2019-09-22] MEDS ORDERED: Azithromycin 500 MG in 0.9 % Sodium Chloride 250 ML IVPB SCH (09:00)
[2019-09-22 09:04] LABS: Basophils % 0.1 %; Hemoglobin 10.2 g/dL (11.5-15.4); Immature Granulocytes % 0.3 % (0-4); Lymphocytes # 0.5 K/mcL (0.6-4.6); Lymphocytes % 5.4 %; Mean Corpuscular HGB Conc 30.9 g/dL (31.6-35.5); Mean Corpuscular Volume 100.3 fL (83.0-100.0); Mean Platelet Volume 9.4 fL (9.4-12.4); Monocytes # 0.7 K/mcL (0.0-1.3); Monocytes % 7.7 %; Neutrophils # 7.8 K/mcL (1.6-8.9); Platelet Count 196 K/mcL (140-400); Red Blood Count 3.29 M/mcL (3.82-4.97); Red Cell Distribution Width 13.2 % (11.5-14.5); Segmented Neutrophils % 86.5 %; White Blood Count 9.1 K/mcL (4.3-11.1)
[2019-09-22 09:26] LABS: BUN/Creatinine Ratio 35 (6-26); Blood Urea Nitrogen 32 mg/dL (8-23); Calcium 9.3 mg/dL (8.6-10.3); Carbon Dioxide 33 mEq/L (23-29); Chloride 100 mEq/L (98-107); Glucose 151 mg/dL (70-105); Osmolality,Calculated 302 (280-300); Sodium 141 mEq/L (136-145); eGFR For African Americans > 60 (> 60); eGFR For Non-African Americans 59 (> 60)
[2019-09-22] MEDS ORDERED: Furosemide 20 MG/2 ML VIAL IVP ONE (12:01)
[2019-09-22] MEDS: Ipratropium 1 PUFF INHALER IH SCH ×3 (16:08→23:36)
[2019-09-22] MEDS: Mirtazapine 15 MG TABLET PO SCH (20:03)
[2019-09-23] MEDS: Ipratropium 1 PUFF INHALER IH SCH ×6 (03:59→23:58)
[2019-09-23] MEDS: *HR* Heparin 5,000 UNIT/ML VIAL SQ SCH ×3 (05:00→20:44)
[2019-09-23 06:00] LABS: BUN/Creatinine Ratio 38 (6-26); Blood Urea Nitrogen 38 mg/dL (8-23); Calcium 9.5 mg/dL (8.6-10.3); Carbon Dioxide 37 mEq/L (23-29); Chloride 98 mEq/L (98-107); Glucose 125 mg/dL (70-105); Osmolality,Calculated 301 (280-300); Sodium 140 mEq/L (136-145); eGFR For African Americans > 60 (> 60); eGFR For Non-African Americans 53 (> 60)
[2019-09-23 06:27] LABS: Hematocrit 31.3 % (35.3-44.9); Hemoglobin 9.8 g/dL (11.5-15.4); Mean Corpuscular HGB Conc 31.3 g/dL (31.6-35.5); Mean Corpuscular Hemoglobin 31.8 pg (28.0-33.3); Mean Corpuscular Volume 101.6 fL (83.0-100.0); Mean Platelet Volume 9.7 fL (9.4-12.4); Platelet Count 207 K/mcL (140-400); Red Blood Count 3.08 M/mcL (3.82-4.97); Red Cell Distribution Width 13.2 % (11.5-14.5)
[2019-09-23 06:35] LABS: White Blood Count 14.7 K/mcL (4.3-11.1)
[2019-09-23] MEDS: cefTRIAXone 1,000 MG in Water for inj. (sterile) 10 ML IVP SCH (08:45)
[2019-09-23] MEDS: Dexamethasone 4 MG/ML VIAL IVP SCH (08:46)
[2019-09-23] MEDS: Azithromycin 250 MG TABLET PO SCH (08:46)
[2019-09-23] MEDS: carvediloL 25 MG TABLET PO SCH ×2 (08:46→17:33)
[2019-09-23] MEDS: Aspirin 81 MG TAB.CHEW PO SCH (08:46)
[2019-09-23] MEDS: Mirtazapine 15 MG TABLET PO SCH (20:46)
[2019-09-24] MEDS: Ipratropium 1 PUFF INHALER IH SCH ×4 (03:28→16:19)
[2019-09-24 04:27] LABS: Basophils % 0.1 %; Hematocrit 28.7 % (35.3-44.9); Immature Granulocytes % 0.7 % (0-4); Lymphocytes # 0.5 K/mcL (0.6-4.6); Lymphocytes % 3.8 %; Mean Corpuscular HGB Conc 31.4 g/dL (31.6-35.5); Mean Corpuscular Hemoglobin 30.8 pg (28.0-33.3); Mean Corpuscular Volume 98.3 fL (83.0-100.0); Mean Platelet Volume 9.2 fL (9.4-12.4); Monocytes # 0.8 K/mcL (0.0-1.3); Monocytes % 6.1 %; Neutrophils # 12.3 K/mcL (1.6-8.9); Platelet Count 178 K/mcL (140-400); Red Blood Count 2.92 M/mcL (3.82-4.97); Segmented Neutrophils % 89.3 %; White Blood Count 13.7 K/mcL (4.3-11.1)
[2019-09-24 04:45] LABS: BUN/Creatinine Ratio 48 (6-26); Blood Urea Nitrogen 45 mg/dL (8-23); Calcium 9.1 mg/dL (8.6-10.3); Carbon Dioxide 39 mEq/L (23-29); Chloride 99 mEq/L (98-107); Glucose 126 mg/dL (70-105); Osmolality,Calculated 303 (280-300); Potassium 4.3 mEq/L (3.5-5.1); Sodium 140 mEq/L (136-145); eGFR For African Americans > 60 (> 60); eGFR For Non-African Americans 57 (> 60)
[2019-09-24] MEDS: *HR* Heparin 5,000 UNIT/ML VIAL SQ SCH ×2 (05:47→13:03)
[2019-09-24] MEDS: Dexamethasone 4 MG/ML VIAL IVP SCH (07:50)
[2019-09-24] MEDS: Azithromycin 250 MG TABLET PO SCH (07:51)
[2019-09-24] MEDS: cefTRIAXone 1,000 MG in Water for inj. (sterile) 10 ML IVP SCH (07:51)
[2019-09-24] MEDS: Aspirin 81 MG TAB.CHEW PO SCH (07:51)
[2019-09-24] MEDS: carvediloL 25 MG TABLET PO SCH ×2 (07:51→17:03)
[2019-09-24 14:49] VITALS: BP 125/78
== END 2019-09-24 17:58 | DRG 177 ==
LOC: EMEROOARM 05:01 → 2NENU 05:01
PROVIDERS: ADMIT Family Medicine; ATTEND Family Medicine